=== PATIENT | male | born 1935 | race Caucasian/White ===

== ENCOUNTER 2023-05-07 07:55 | Day surgery (SDC) | payer MEDICARE ==
[~2023-05-07] VITALS: Ht 188 cm; Wt 125.2 kg
[~2023-05-07 07:55] MED LIST: ATORVASTATIN CA20 MG PO; FUROSEMIDE40 MG PO; GABAPENTIN600 MG PO; HYDCHL25 PO; K-Dur 20 meq T20 MEQ PO; LOSARTAN POTAS100 M1 PO; METOPROLOL SUCC25 MG PO; MYRBETRIQ50 MG PO; ONDA4ODT MM; SULFAMETHOXAZO1 EAC1 PO; SULTRISS; XARELTO1 EAC1 PO
--- NOTE | 2023-05-07 08:52 | NUR ---
05/07/23 0852 Nubia Chance 1 DROP OF TETRACAINE TO THE L EYE AT 0847, PLEDGET PLACED IN L EYE AT 0849 PT [facility], [facility]FOR[facility] BY [facility]
--- NOTE | 2023-05-07 09:59 | NUR ---
05/07/23 0959 Lauren Alvarado IV OUT, WNL, PT [facility]
[2023-05-07 10:01] VITALS: BP 128/75
== END 2023-05-07 10:05 | disposition home or self-care (01) ==
LOC: ORSCSDS 07:55
PROVIDERS: Ophthalmology
PROC: 08RK3JZ Replacement of Left Lens with Synthetic Substitute, Percutaneous Approach (ICD-10-PCS; principal; 2023-05-07 09:30)
DX: H25.12 Age-related nuclear cataract, left eye (principal); H21.81 Floppy iris syndrome; I10 Essential (primary) hypertension; I48.91 Unspecified atrial fibrillation; E66.9 Obesity, unspecified; Z68.35 Body mass index [BMI] 35.0-35.9, adult; E78.00 Pure hypercholesterolemia, unspecified; Z79.899 Other long term (current) drug therapy
CPT/HCPCS: J3010; J3301; J7040; V2632

== ENCOUNTER 2023-05-14 07:47 | Day surgery (SDC) | payer MEDICARE ==
[~2023-05-14] VITALS: Ht 188 cm; Wt 121.4 kg
[2023-05-14 09:45] VITALS: BP 123/79
--- NOTE | 2023-05-14 09:56 | NUR ---
05/14/23 0956 Jamey Patricio IV REMOVED. SITE WNL. [facility] INTACT.
== END 2023-05-14 09:59 | disposition home or self-care (01) ==
LOC: ORSCSDS 07:47
PROVIDERS: Ophthalmology
PROC: 08RJ3JZ Replacement of Right Lens with Synthetic Substitute, Percutaneous Approach (ICD-10-PCS; principal; 2023-05-14 09:30)
DX: H25.11 Age-related nuclear cataract, right eye (principal); Z96.1 Presence of intraocular lens; I10 Essential (primary) hypertension; I48.91 Unspecified atrial fibrillation; Z79.01 Long term (current) use of anticoagulants; E78.00 Pure hypercholesterolemia, unspecified; Z79.899 Other long term (current) drug therapy
CPT/HCPCS: J2001; J2250; J3010; J3301; J7040; V2632

== ENCOUNTER → 2025-03-23 | Outpatient (CLI) | payer OTHER ==
[2025-03-23 14:39] LABS: BASOPHILS ABSOLUTE AUTO 0.11 K/mm3 (0.00-0.23); BASOPHILS PERCENT AUTO 0 % (0-2); EOSINOPHILS ABSOLUTE AUTO 0.30 K/mm3 (0.00-0.68); EOSINOPHILS PERCENT AUTO 1 % (0-6); Hematocrit 42.2 % (37.0-53.0); Hemoglobin 13.3 g/dL (13.5-17.5); IMMATURE GRAN ABSOLUTE AUTO 0.06 K/mm3 (0.00-0.10); IMMATURE GRAN PERCENT AUTO 0 % (0-1); LYMPHOCYTES ABSOLUTE AUTO 30.55 K/mm3 (0.84-5.20); LYMPHOCYTES PERCENT AUTO 83 % (21-46); MONOCYTES ABSOLUTE AUTO 0.84 K/mm3 (0.16-1.47); MONOCYTES PERCENT AUTO 2 % (4-13); Mean Corpuscular HGB Conc 31.5 g/dL (31.5-36.5); Mean Corpuscular Volume 99 fL (80-100); NEUTROPHILS ABSOLUTE AUTO 5.08 K/mm3 (1.96-9.15); NEUTROPHILS PERCENT AUTO 14 % (41-73); NRBC ABSOLUTE 0.00 K/mm3 (0.00-0.02); NRBC Auto 0.0 /100 WBC (0.0-0.2); Platelet Count 121 K/mm3 (150-400); RDW Coefficient Variation 13.8 % (11.7-14.2); RDW Standard Deviation 50.4 fL (35.1-46.3)
== END ==
LOC: LAB SHORT 12:55 → LAB 12:55
PROVIDERS: Internal Medicine Hematology & Oncology
DX: C91.10 Chronic lymphocytic leukemia of B-cell type not having achieved remission (principal)
CPT/HCPCS: 85025